=== PATIENT | female | born 1990 | race Caucasian/White ===

== ENCOUNTER 2018-01-11 21:50 | Inpatient (IN) | payer OTHER ==
--- NOTE | ~2018-01-11 | HC ---
[facility] [place] [address] CONSULTATION Name: NORMAN CORTEZ Room #: 416-P [facility] IN M.R.#: [id number] Admission: 01/11/18 Attend Phys: Martin Mioxn DO Discharge: Date of : 86 Report #: [id number] THIS REPORT FOR: //name// CC: FAM unknown Martin Mixon REASON FOR CONSULTATION: I was asked to evaluate the patient concerning pneumonia. HISTORY OF PRESENT ILLNESS: The patient was a 27-year-old with cerebral palsy. She was nonverbal. Transfers from [facility] for further evaluation and treatment of pneumonia. Over the last week, she has had issues with constipation. No documented vomiting. From her admission at [facility], it was noted that she had a right lower lobe infiltrate. Unclear if she has been having much cough. No fever since she is transferred. ALLERGIES: She is allergic to PENICILLIN. MEDICATIONS: Have included loratadine, Levaquin, lactulose, Flonase, MiraLax, omeprazole, levothyroxine, Depo-Provera. SOCIAL HISTORY: She is a nonsmoker, no significant alcohol intake. PAST MEDICAL HISTORY: Significant for cerebral palsy, UTIs, gastroparesis, scoliosis, seizure disorder, dysphagia, hypothyroidism. She had spinal fusion, bilateral hip surgeries, tendon releases, PEG tube, cystoscopy and Port-A-Cath placement. REVIEW OF SYSTEMS: The patient unable to give me details of review of systems. PHYSICAL EXAMINATION: VITAL SIGNS: She was afebrile, hemodynamically stable. GENERAL: Alert and would smile when I presented to her. SKIN: Unremarkable. LYMPH: Unremarkable. HEENT: Unremarkable. She had some coarse breath sounds bilaterally. No consolidation. HEART: Regular, without murmur. ABDOMEN: Firm. Her PEG site was unremarkable. She had a chest Port-A-Cath, which was unremarkable. EXTREMITIES: Some contractures, mostly to her upper extremities. LABORATORY WORK: Chest x-ray, right basilar atelectasis versus infiltrate. CT scan of the abdomen showed elevation of right hemidiaphragm, large right ovarian cyst. Urinalysis with blood and bacteria, no leukocytes identified. Here, her sodium is 143, potassium 4.3, bicarbonate 23, creatinine 0.7, hemoglobin 15.8, white count 14.3, platelet count 304,000. [address] [address] CONSULTATION Name: CORTEZNORMAN Room #: 416-P [facility] IN M.R.#: [id number] Admission: 01/11/18 Attend Phys: Martin Mixon DO Discharge: Date of : 86 Report #: [id number] IMPRESSION: A 27-year-old with cerebral palsy, leukocytosis, issues with constipation, possible aspiration, but appears that this may be more related to elevated right hemidiaphragm and atelectasis in the right base. Recommend continuing antibiotic coverage, pending further laboratory studies. I would like to repeat her CBC. We will await on cultures that were obtained at [facility]. Continue with laxatives in order to improve her bowel function. <ELECTRONICALLY SIGNED> By: Josesito Rodrigez MD 01/13/182043 11 23 Josesito Rodrigez MD /nt
--- NOTE | ~2018-01-11 | H ---
[facility] [place] [address] HISTORY AND PHYSICAL Name: NORMAN CORTEZ Room #: 416-P ADM IN M.R.#: [id number] Admission: 01/11/18 Attend Phys: Martin Mixon DO Discharge: Date of : 86 Report #: [id number] THIS REPORT FOR: //name// CC: FAM unknown Martin Mixon DATE OF SERVICE: 01/11/2018 ATTENDING PHYSICIAN: Dr. Loaiza. PRIMARY CARE PHYSICIAN: Dr. Martin Ashton. CHIEF COMPLAINT: Possible pneumonia. HISTORY OF PRESENT ILLNESS: The patient is a 27-year-old female with a history of severe cerebral palsy. She is nonverbal and nonambulatory. She was sent by [facility] due to possible pneumonia. They did not have any beds or staff, so her mother elected to have her sent here since she has previously been seen here before. Apparently she was in the ER there three times within the last week due to constipation. Her mom states she was crying and grimacing in regards to whenever she was repositioned. She was given multiple medications including lactulose, magnesium citrate, MiraLax and enemas and still has not had any result. Her labs did show some gradual increase in her white blood cell count and tonight it was up to 17.2. She had not been having fevers, but she was noted on chest x-ray to have a possible right basilar infiltrate versus atelectasis, so she was started on IV antibiotics and was going to be admitted at [facility] [place], but as stated above she was transferred here because they did not have any available beds. The mother is not currently available for further questioning, so records from [facility] [place] were reviewed. The patient is not in any current distress. PAST MEDICAL HISTORY: Severe cerebral palsy, UTI, gastroparesis, scoliosis, seizure disorder, dysphagia and hypothyroidism. PAST SURGICAL HISTORY: Spinal fusion, bilateral hip surgeries, multiple extremity tendon releases, PEG tube placement and subsequent replacement, cystoscopy and Port-A-Cath placement. ALLERGIES: AMOXICILLIN AND ZOSYN ALL CAUSE WELTS. HOME MEDICATIONS: Loratadine 10 mg daily, Levaquin, lactulose, Flonase, MiraLax, omeprazole, Depo-Provera and levothyroxine. SOCIAL HISTORY: The patient does not have any history of tobacco, alcohol or drug use. [address] [address] HISTORY AND PHYSICAL Name: NORMAN CORTEZ Nasreen Room #: 416-P [facility] IN M.R.#: [id number] Admission: 01/11/18 Attend Phys: Martin Mixon DO Discharge: Date of : 86 Report #: [id number] FAMILY HISTORY: Unknown as the patient is adopted. REVIEW OF SYSTEMS: Not obtainable due to nonverbal status. PHYSICAL EXAMINATION: GENERAL: The patient is an alert, but nonverbal female in no acute distress. VITAL SIGNS: Temperature is 37.1, heart rate 122, respirations 18, blood pressure 134/90 and oxygen 95. HEENT: PERRLA. Sclerae are nonicteric. Oral mucosa: She does have a dry mouth and gingival overgrowth. NECK: Supple. There is no JVD noted. CARDIAC: Normal S1, S2, but tachycardic. No murmurs. RESPIRATORY: Breath sounds are clear bilateral upper lobes. She is diminished in the right lower lobe. Breathing is nonlabored. There is no coughing noted. ABDOMEN: Soft. She does not grimace with any palpation. She does have active bowel sounds. Her PEG tube is clamped. It is nondistended. VASCULAR: No edema noted. EXTREMITIES: She does have contractures of the bilateral upper and lower extremities as well as some torso rotation from scoliosis. SKIN: Intact. No rashes or lesions. LABORATORY DATA AND DIAGNOSTICS: Blood work from [place] showed a WBC of 17.2, hemoglobin 16.2 and platelets 316. Sodium 144, potassium 3.6, BUN 10, creatinine 0.7 and glucose 91. LFTs are within normal limits. Lactate is 0.6. Lipase 127. UA showed some blood, some bacteria, but no leukocyte esterase or wbc's. Chest x-ray showed low lung volumes. There was a right basilar atelectasis versus early infiltrate. CT of the abdomen showed that the lung bases were clear and there was an unchanged elevation of the right hemidiaphragm and a large right ovarian cyst that appeared normal. ASSESSMENT AND PLAN: 1. Constipation. We will continue with aggressive meds including lactulose, MiraLax and suppositories. She does not appear to have any abdominal pain at this time. Her lactate was normal. No signs of obstruction on CT. 2. Possible pneumonia. The patient really does not have any clinical symptoms of pneumonia, although she does have some mild leukocytosis. On the chest x-ray, it shows some possible early infiltrate, but the CT of the abdomen just shows an elevated right hemidiaphragm. We will continue with Levaquin and follow the blood cultures from [place]. 3. Cerebral palsy with dysphagia. Continue tube feedings as tolerated. 4. Seizure disorder. Continue Zonegran as at home. 5. Deep venous thrombosis prophylaxis, place sequential compression devices. [address] [address] HISTORY AND PHYSICAL Name: NORMAN CORTEZ Room #: 416-P ADM IN M.R.#: [id number] Admission: 01/11/18 Attend Phys: Martin Mixon DO Discharge: Date of : 86 Report #: [id number] We will continue to follow the patient closely throughout the hospitalization and make changes based on clinical status. <ELECTRONICALLY SIGNED> By: COURTNEY Donovan 01/12/18 [id number] COURTNEY Donovan /jose e
[~2018-01-11 21:50] MED LIST: CLARITIN10 MG PER TUBE; DEPO-PROVER150 MG/M1 INJ; FLONASE 0.05%50 MCG NASAL; KRISTALOSE10 GM PER TUBE; LEVAQUIN 250 M250 MG PER TUBE; LEVOXYL75 MCG PER TUBE; MIRALAX17 GM PER TUBE; PRILOSEC 20 MG20 MG PER TUBE; PRILOSEC 20 MG20 MG PO
[2018-01-12 00:30] VITALS: BP 134/90
[2018-01-12 04:00] VITALS: BP 137/93
[2018-01-12 06:26] LABS: HEMATOCRIT 45.4 % (37.0-47.0); HEMOGLOBIN 15.8 gm/dL (12.0-15.0); MCH 29.3 pg (26.0-34.0); MCHC 34.7 g/dL (28.0-37.0); MCV 84.5 fL (80.0-100.0); RBC 5.38 mil/uL (4.20-5.00); RDW 12.9 % (10.5-14.5); WBC 14.3 thou/uL (4.0-11.0)
[2018-01-12 06:37] LABS: CALCIUM 9.5 mg/dL (8.5-10.1); CREATININE 0.7 mg/dL (0.6-1.0)
[2018-01-12 06:38] LABS: POTASSIUM 4.3 mmol/L (3.5-5.1)
[2018-01-12 07:55] VITALS: BP 137/103
[2018-01-12 09:36] VITALS: BP 128/83
[2018-01-12 16:13] VITALS: BP 141/92
[2018-01-12 20:46] VITALS: BP 131/84
[2018-01-13 03:57] VITALS: BP 131/94
[2018-01-13 07:35] VITALS: BP 119/77
[2018-01-13 18:15] VITALS: BP 146/107
[2018-01-13 19:57] VITALS: BP 134/98
[2018-01-14 04:12] VITALS: BP 134/91
[2018-01-14 04:38] LABS: BASOPHILS 0.3 % (0.0-2.0); EOSINOPHILS 3.5 % (0.0-3.0); HEMATOCRIT 36.8 % (37.0-47.0); LYMPHOCYTES 18.6 % (24.0-44.0); MCH 29.7 pg (26.0-34.0); MCHC 34.5 g/dL (28.0-37.0); MCV 85.9 fL (80.0-100.0); MONOCYTES 9.8 % (1.0-8.0); POLYS 67.8 % (36.0-66.0); RBC 4.28 mil/uL (4.20-5.00); RDW 12.6 % (10.5-14.5); WBC 10.4 thou/uL (4.0-11.0)
[2018-01-14 04:42] LABS: HEMOGLOBIN 12.7 gm/dL (12.0-15.0); PLATELET COUNT 215 thou/uL (150-400)
[2018-01-14 04:48] LABS: CALCIUM 8.3 mg/dL (8.5-10.1); CREATININE 0.3 mg/dL (0.6-1.0)
[2018-01-14 04:54] LABS: POTASSIUM 2.7 mmol/L (3.5-5.1)
[2018-01-14 07:23] VITALS: BP 118/74
[2018-01-14 20:00] VITALS: BP 131/62
[2018-01-15 05:20] VITALS: BP 117/76
[2018-01-15 08:00] VITALS: BP 132/91
[2018-01-15 16:50] VITALS: BP 124/97
[2018-01-15 20:36] VITALS: BP 148/68
[2018-01-16 07:53] VITALS: BP 137/92
[2018-01-16 17:36] VITALS: BP 145/92
[2018-01-16 20:00] VITALS: BP 126/60
[2018-01-17 04:00] VITALS: BP 140/69
[2018-01-17 09:32] VITALS: BP 131/90
[2018-01-17] MEDS ORDERED: LEVAQUIN 250 M250 MG PER TUBE (09:34)
[2018-01-17 10:11] VITALS: BP 131/90
== END 2018-01-17 11:35 | disposition home health service (06) | DRG 871 ==
LOC: 4N 21:50
PROVIDERS: Family Medicine; Nurse Practitioner Acute Care
DX: A41.50 Gram-negative sepsis, unspecified (principal); J18.9 Pneumonia, unspecified organism; K59.00 Constipation, unspecified; G80.9 Cerebral palsy, unspecified; R13.10 Dysphagia, unspecified; G40.909 Epilepsy, unspecified, not intractable, without status epilepticus; E03.9 Hypothyroidism, unspecified; K21.9 Gastro-esophageal reflux disease without esophagitis; Z79.899 Other long term (current) drug therapy; Z88.8 Allergy status to other drugs, medicaments and biological substances; Z88.1 Allergy status to other antibiotic agents
CPT/HCPCS: 10790